=== PATIENT | male | born 1990 | race Caucasian/White ===

== ENCOUNTER 2016-12-15 22:23 | Emergency (ER) | payer SELFPAY ==
[~2016-12-15] VITALS: Ht 175.3 cm; Wt 74.3 kg
[~2016-12-15 22:23] MED LIST: AUGMENTIN875 MG PO; MOTRIN800 MG PO
[2016-12-15 23:13] LABS: HEMATOCRIT 43.6 % (38.0-50.0); MCH 32.5 PG (29.0-34.0); MCHC 36.2 G/DL (30.0-36.0); MCV 89.7 FL (86-99); MEAN PLAT.VOLUME 9.4 uM^3 (9.0-12.4); PLATELET COUNT 267 K/uL (156-360); RBC DIS.WIDTH-CV 12.7 % (11.8-14.6); RBC DIS.WIDTH-SD 41.5 % (39-53); RED BLOOD COUNT 4.86 M/uL (4.00-5.50); WHITE BLOOD COUNT 6.6 K/uL (4.1-10.2)
[2016-12-15 23:27] LABS: CHLORIDE 115 mEq/L (99-109); POTASSIUM 3.3 mEq/L (3.7-5.4); SODIUM 147 mEq/L (136-147)
[2016-12-15 23:29] LABS: GLUCOSE 112 mg/dL (70-99)
[2016-12-15 23:30] LABS: ANION GAP 10 MEQ/L (2-14)
[2016-12-15 23:32] LABS: SERUM ETHYL ALCOHOL 329 mg/dL
[2016-12-15 23:34] LABS: UREA NITROGEN (BUN) 7 mg/dL (9-23)
[2016-12-15 23:36] LABS: SALICYLATE < 5.0 MG/DL (15-30)
[2016-12-15 23:38] LABS: GFR ESTIMATE (CALCULATED) > 59 mL/min/
[2016-12-16 03:10] LABS: ADD MEDTOX COMMENT Y; AMPHETAMINE NEGATIVE (500 ng/mL); BARBITURATES NEGATIVE (200 ng/mL); BENZODIAZEPINES PRESUMPTIVE POSITIVE (150 ng/mL); COCAINE NEGATIVE (150 ng/mL); INTERNAL CONTROLS VALID? YES; METHADONE NEGATIVE (200 ng/mL); METHAMPHETAMINE NEGATIVE (500 ng/mL); OPIATES (MORPHINE) NEGATIVE (100 ng/mL); OXYCODONE NEGATIVE (100 ng/mL); PHENCYCLIDINE NEGATIVE (25 ng/mL); PROPOXYPHENE NEGATIVE (300 ng/mL); THC CANNABINOIDS NEGATIVE (50 ng/mL); TRICYCLIC ANTIDEPRESSANTS NEGATIVE (300 ng/mL)
[2016-12-16 05:24] LABS: BENZODIAZEPINES, URINE SCREEN POSITIVE (200 ng/mL)
[2016-12-16] MEDS ORDERED: PEPCID20 MG PO (05:58)
[2016-12-16 06:25] VITALS: BP 93/58
== END 2016-12-16 06:29 | disposition home or self-care (01) ==
LOC: EME 22:23 → EDBD 22:23 → EME 22:23
PROVIDERS: Emergency Medicine
DX: F10.129 Alcohol abuse with intoxication, unspecified (principal); R45.1 Restlessness and agitation
CPT/HCPCS: 71010; 80048; 83930; 84999; 85027; 93005; 99281; 99285; G0480; J1630; J2250; J7030

== ENCOUNTER 2017-08-24 18:18 | Inpatient (IN) | payer OTHER ==
[~2017-08-24] VITALS: Ht 180.3 cm; Wt 70.0 kg
[~2017-08-24 18:18] MED LIST changes: +PEPCID20 MG PO
[2017-08-24 19:20] LABS: HEMATOCRIT 48.2 % (38.0-50.0); MCH 32.7 PG (29.0-34.0); MCHC 35.9 G/DL (30.0-36.0); MCV 91.1 FL (86-99); MEAN PLAT.VOLUME 9.4 uM^3 (9.0-12.4); PLATELET COUNT 267 K/uL (156-360); RBC DIS.WIDTH-SD 40.2 % (39-53); RED BLOOD COUNT 5.29 M/uL (4.00-5.50); WHITE BLOOD COUNT 11.9 K/uL (4.1-10.2)
[2017-08-24 19:36] LABS: CHLORIDE 99 mEq/L (99-109)
[2017-08-24 19:37] LABS: POTASSIUM 3.6 mEq/L (3.7-5.4); SODIUM 137 mEq/L (136-147)
[2017-08-24 19:38] LABS: GLUCOSE 129 mg/dL (70-99)
[2017-08-24 19:39] LABS: TROP-I INTERPRETATION NEGATIVE; TROPONIN-I < 0.01 ng/mL (0.0-0.30)
[2017-08-24 19:40] LABS: ANION GAP 16 MEQ/L (2-14)
[2017-08-24 19:42] LABS: GFR ESTIMATE (CALCULATED) > 59 mL/min/
[2017-08-24 19:43] LABS: UREA NITROGEN (BUN) 8 mg/dL (9-23)
[2017-08-25 00:33] LABS: INTER. NORMALIZED RATIO 1.2; PROTHROMBIN TIME 13.6 SEC (10.2-12.9)
[2017-08-25 00:36] LABS: PTT 30.8 SEC (25-37)
[2017-08-25 03:14] LABS: TOTAL BILIRUBIN 0.8 mg/dL (0.0-1.0)
[2017-08-25 03:15] LABS: ALKALINE PHOSPHATASE 139 IU/L (3-129)
[2017-08-25 03:18] LABS: DIRECT BILIRUBIN 0.4 mg/dL (0.0-0.3)
[2017-08-25 03:26] VITALS: BP 108/55
[2017-08-25 05:35] LABS: HEMATOCRIT 40.6 % (38.0-50.0); MCHC 34.5 G/DL (30.0-36.0); MCV 92.9 FL (86-99); MEAN PLAT.VOLUME 9.5 uM^3 (9.0-12.4); PLATELET COUNT 234 K/uL (156-360); RBC DIS.WIDTH-CV 12.2 % (11.8-14.6); RED BLOOD COUNT 4.37 M/uL (4.00-5.50); WHITE BLOOD COUNT 9.9 K/uL (4.1-10.2)
[2017-08-25 05:54] LABS: ALKALINE PHOSPHATASE 94 IU/L (3-129); ANION GAP 6 MEQ/L (2-14); CHLORIDE 107 MEQ/L (99-109); GFR ESTIMATE (CALCULATED) > 59 mL/min/; GLUCOSE 100 mg/dL (70-99); SAMPLE HEMOLYSIS CHECK 0; SAMPLE ICTERIC CHECK 0; SAMPLE LIPEMIA CHECK 0; SODIUM 138 MEQ/L (136-147); TOTAL BILIRUBIN 0.9 MG/DL (0.0-1.0); UREA NITROGEN (BUN) 7 mg/dL (9-23)
[2017-08-25 08:32] VITALS: BP 113/59
[2017-08-25 12:30] VITALS: BP 100/57
[2017-08-25 17:31] VITALS: BP 115/59
[2017-08-25 21:02] VITALS: BP 112/56
[2017-08-25 23:35] VITALS: BP 101/52
[2017-08-26 07:49] VITALS: BP 95/54
[2017-08-26 11:16] VITALS: BP 106/55
[2017-08-26] MEDS ORDERED: XARELTO1 EACH PO (11:36)
[2017-08-26 17:39] VITALS: BP 104/54
[2017-08-26 19:40] VITALS: BP 107/59
[2017-08-27 00:20] VITALS: BP 109/57
[2017-08-27 04:44] VITALS: BP 116/59
[2017-08-27 07:51] VITALS: BP 107/52
[2017-08-27] MEDS ORDERED: THERAGRAN1 TABLET PO (09:56)
[2017-08-27] MEDS ORDERED: NICOTINE PATCH1 EAC2 TD (09:56)
[2017-08-27] MEDS ORDERED: ENDOCET 5-3251 EACH PO (09:56)
[2017-08-27] MEDS ORDERED: FOLIC ACID1 MG PO (09:56)
[2017-08-27] MEDS ORDERED: B-1100 MG PO (09:56)
[2017-08-27 11:29] VITALS: BP 109/68
[2017-08-27 22:55] LABS: LUPA PHOSPHOLIPID NEUTRALIZ Negative (Negative)
[2017-08-29 16:33] LABS: DRVVT Mixing Study Interp Not Indicated (()); PROTEIN C FUNCTIONAL ACTIVITY+ 61 % (70-180); PTT-LA 71 sec (<=40); PTT-LA Reflex Has been added (()); Protein S, Free 111 % normal (57-171); Thrombosis Consult Level Limited (()); dRVVT Screen 49 sec (<=45)
[2017-08-30 10:21] LABS: ANTITHROMBIN III ACTIVITY+ 80 % activi (80-120)
[2017-08-31 10:26] LABS: THROMBIN TIME+ 20 sec (13-19)
== END 2017-08-27 13:00 | disposition home or self-care (01) | DRG 176 ==
LOC: EME 18:18 → EDOF 08-25 02:03 → 3EAST 08-25 02:03 → ENRESERV 08-25 02:04 → 3EAST 08-25 02:51
PROVIDERS: Hospitalist; Physician Assistant
DX: I26.99 Other pulmonary embolism without acute cor pulmonale (principal); R04.2 Hemoptysis; I82.492 Acute embolism and thrombosis of other specified deep vein of left lower extremity; E87.6 Hypokalemia; R00.0 Tachycardia, unspecified; K21.9 Gastro-esophageal reflux disease without esophagitis; J45.909 Unspecified asthma, uncomplicated; F17.210 Nicotine dependence, cigarettes, uncomplicated; Z23 Encounter for immunization
CPT/HCPCS: 71020; 71275; 80048; 80053; 80076; 81240 90; 83090 90; 83605; 83735; 84484; 85027; 85240 90; 85300 90; 85303 90; 85305 90; 85306 90; 85307 90; 85379; 85610; 85613 90; 85670 90; 85730; 85730 90; 86146 90; 86147 90; 87040; 90686; 93005; 93306; 93970; 99281; 99285; J0696; J1170; J1885; J2270; J2405; J7030; J7050

== ENCOUNTER 2018-03-28 15:14 | Emergency (ER) | payer SELFPAY ==
[~2018-03-28] VITALS: Ht 180.3 cm; Wt 63.6 kg
[~2018-03-28 15:14] MED LIST changes: +B-1100 MG PO; +ENDOCET 5-3251 EACH PO; +FOLIC ACID1 MG PO; +NICOTINE PATCH1 EAC2 TD; +THERAGRAN1 TABLET PO; +XARELTO1 EACH PO
[2018-03-28 22:27] VITALS: BP 114/65
== END 2018-03-28 22:28 | disposition home or self-care (01) ==
LOC: EME 15:14
PROC: 0JQ10ZZ Repair Face Subcutaneous Tissue and Fascia, Open Approach (ICD-10-PCS; principal; 2018-03-28)
DX: S01.81XA Laceration without foreign body of other part of head, initial encounter (principal); S02.2XXA Fracture of nasal bones, initial encounter for closed fracture; W01.190A Fall on same level from slipping, tripping and stumbling with subsequent striking against furniture, initial encounter; F10.129 Alcohol abuse with intoxication, unspecified; Y90.9 Presence of alcohol in blood, level not specified; K21.9 Gastro-esophageal reflux disease without esophagitis; J45.909 Unspecified asthma, uncomplicated; F41.9 Anxiety disorder, unspecified; F17.200 Nicotine dependence, unspecified, uncomplicated; Z86.711 Personal history of pulmonary embolism
CPT/HCPCS: 70450; 72125; 99281; 99285; J2060

== ENCOUNTER 2018-03-31 06:36 | Inpatient (IN) | payer OTHER ==
[~2018-03-31] VITALS: Ht 180.3 cm; Wt 64.9 kg
[2018-03-31 07:25] LABS: INTER. NORMALIZED RATIO 1.2
[2018-03-31 07:51] LABS: ALBUMIN 3.4 G/DL (3.2-4.8); ALKALINE PHOSPHATASE 127 IU/L (3-129); ALT (GPT) 179 IU/L (3-49); AST (GOT) 304 IU/L (2-34); CHLORIDE 93 MEQ/L (99-109); CREATININE 0.7 MG/DL (0.6-1.3); GFR ESTIMATE (CALCULATED) > 59 mL/min/ (58.99-99999); GLUCOSE 176 mg/dL (70-99); LIPASE 91 U/L (1.0-51.0); POTASSIUM 2.5 MEQ/L (3.7-5.4); SODIUM 134 MEQ/L (136-147); TOTAL BILIRUBIN 2.7 MG/DL (0.0-1.0); TOTAL PROTEIN 6.2 G/DL (6.4-8.3); UREA NITROGEN (BUN) 9 mg/dL (9-23)
[2018-03-31 08:39] LABS: BASOPHIL (%) 0.3 % (0-1); BASOPHIL COUNT 0.1 K/uL (0-0.1); EOSINOPHIL (%) 0.1 % (0-5); HEMATOCRIT 40.1 % (38.0-50.0); HEMOGLOBIN 15.3 G/DL (12.5-16.6); IMMATURE GRANULOCYTE (%) 1.5 % (0.0-0.7); LYMPHOCYTE (%) 6.7 % (15-42); MCH 35.4 PG (29.0-34.0); MCHC 38.2 G/DL (30.0-36.0); MCV 92.8 FL (86-99); MONOCYTE (%) 4.9 % (3-12); MONOCYTE COUNT 0.7 K/uL (0-0.8); NEUTROPHIL (%) 86.5 % (45-76); NEUTROPHIL COUNT 12.6 K/uL (1.8-6.4); PLATELET COUNT 225 K/uL (156-360); RBC DIS.WIDTH-CV 12.4 % (11.8-14.6); RBC DIS.WIDTH-SD 42.1 % (39-53); RED BLOOD COUNT 4.32 M/uL (4.00-5.50); WHITE BLOOD COUNT 14.6 K/uL (4.1-10.2)
[2018-03-31 11:04] LABS: PTT 25.8 SEC (25-37)
[2018-03-31 11:50] LABS: MAGNESIUM 1.5 mg/dl (1.3-2.7)
[2018-03-31 12:45] LABS: APPEARANCE CLEAR ((CLEAR)); BILIRUBIN SMALL; BLOOD NEGATIVE; COLOR AMBER ((YELLOW)); GLUCOSE (STRIP) NEGATIVE; KETONES NEGATIVE; LEUKOCYTES NEGATIVE; NITRITE NEGATIVE; PROTEIN (STRIP) 30; UCUL ADDED? NO
[2018-03-31 12:47] LABS: SPECIFIC GRAVITY > 1.060 (1.000-1.030)
[2018-03-31 12:54] LABS: AMPHETAMINE PRESUMPTIVE POSITIVE (500 ng/mL); BARBITURATES NEGATIVE (200 ng/mL); BENZODIAZEPINES PRESUMPTIVE POSITIVE (150 ng/mL); BUPRENORPHINE PRESUMPTIVE POSITIVE (10 ng/mL); COCAINE NEGATIVE (150 ng/mL); METHADONE NEGATIVE (200 ng/mL); METHAMPHETAMINE NEGATIVE (500 ng/mL); OPIATES (MORPHINE) NEGATIVE (100 ng/mL); OXYCODONE NEGATIVE (100 ng/mL); PHENCYCLIDINE NEGATIVE (25 ng/mL); PROPOXYPHENE NEGATIVE (300 ng/mL); THC CANNABINOIDS NEGATIVE (50 ng/mL); TRICYCLIC ANTIDEPRESSANTS NEGATIVE (300 ng/mL)
[2018-03-31 12:55] LABS: HEMATOCRIT 42.7 % (38.0-50.0); MCH 35.4 PG (29.0-34.0); MCHC 37.5 G/DL (30.0-36.0); MCV 94.5 FL (86-99); PLATELET COUNT 203 K/uL (156-360); RBC DIS.WIDTH-CV 12.8 % (11.8-14.6); RBC DIS.WIDTH-SD 43.9 % (39-53); RED BLOOD COUNT 4.52 M/uL (4.00-5.50); WHITE BLOOD COUNT 11.6 K/uL (4.1-10.2)
[2018-03-31 14:02] LABS: BENZODIAZEPINES, URINE SCREEN Negative (200 ng/mL)
[2018-03-31 14:22] VITALS: BP 120/69
[2018-03-31 16:27] LABS: AMYLASE 56 IU/L (1-118); CHLORIDE 99 MEQ/L (99-109); CREATININE 0.8 MG/DL (0.6-1.3); GFR ESTIMATE (CALCULATED) > 59 mL/min/ (58.99-99999); GLUCOSE 155 mg/dL (70-99); LACTATE DEHYDROGENASE 234 IU/L (20-246); SODIUM 135 MEQ/L (136-147); UREA NITROGEN (BUN) 12 mg/dL (9-23)
[2018-03-31 16:31] LABS: POTASSIUM 3.6 MEQ/L (3.7-5.4)
[2018-03-31 16:40] LABS: CREATINE KINASE 29 IU/L (1-294)
[2018-03-31 17:45] LABS: STOOL OCCULT BLD 1ST SPECIMEN NEGATIVE
[2018-03-31 17:58] LABS: C DIFF TOXIN POSITIVE (NEGATIVE)
[2018-03-31 20:13] VITALS: BP 118/71
[2018-03-31 21:58] VITALS: BP 105/56
[2018-03-31 23:59] VITALS: BP 112/69
[2018-04-01 02:50] VITALS: BP 117/63
[2018-04-01 05:58] LABS: HEMOGLOBIN 14.2 G/DL (12.5-16.6); MCH 34.5 PG (29.0-34.0); MCHC 36.4 G/DL (30.0-36.0); MCV 94.9 FL (86-99); PLATELET COUNT 174 K/uL (156-360); RBC DIS.WIDTH-CV 13.3 % (11.8-14.6); RBC DIS.WIDTH-SD 46.7 % (39-53); RED BLOOD COUNT 4.11 M/uL (4.00-5.50)
[2018-04-01 06:25] LABS: ALBUMIN 2.6 G/DL (3.2-4.8); ALT (GPT) 112 IU/L (3-49); CHLORIDE 102 MEQ/L (99-109); CREATININE 0.7 MG/DL (0.6-1.3); GFR ESTIMATE (CALCULATED) > 59 mL/min/ (58.99-99999); POTASSIUM 3.5 MEQ/L (3.7-5.4); SODIUM 136 MEQ/L (136-147); UREA NITROGEN (BUN) 16 mg/dL (9-23)
[2018-04-01 06:34] LABS: ALKALINE PHOSPHATASE 61 IU/L (3-129); AST (GOT) 137 IU/L (2-34); GLUCOSE 107 mg/dL (70-99); TOTAL BILIRUBIN 3.7 MG/DL (0.0-1.0); TOTAL PROTEIN 4.7 G/DL (6.4-8.3)
[2018-04-01 08:01] VITALS: BP 116/82
[2018-04-01 12:08] VITALS: BP 120/69
[2018-04-01 17:06] VITALS: BP 119/68
[2018-04-01 19:48] VITALS: BP 110/57
[2018-04-02 06:02] LABS: BASOPHIL (%) 0.1 % (0-1); EOSINOPHIL (%) 0.1 % (0-5); HEMATOCRIT 34.1 % (38.0-50.0); HEMOGLOBIN 12.3 G/DL (12.5-16.6); IMMATURE GRANULOCYTE (%) 0.9 % (0.0-0.7); LYMPHOCYTE (%) 11.2 % (15-42); LYMPHOCYTE COUNT 1.5 K/uL (1.0-2.8); MCH 34.6 PG (29.0-34.0); MCHC 36.1 G/DL (30.0-36.0); MCV 95.8 FL (86-99); MONOCYTE (%) 4.2 % (3-12); MONOCYTE COUNT 0.6 K/uL (0-0.8); NEUTROPHIL (%) 83.5 % (45-76); NEUTROPHIL COUNT 11.1 K/uL (1.8-6.4); PLATELET COUNT 160 K/uL (156-360); RBC DIS.WIDTH-CV 13.2 % (11.8-14.6); RED BLOOD COUNT 3.56 M/uL (4.00-5.50); WHITE BLOOD COUNT 13.3 K/uL (4.1-10.2)
[2018-04-02 06:35] LABS: ALBUMIN 2.5 G/DL (3.2-4.8); ALKALINE PHOSPHATASE 53 IU/L (3-129); ALT (GPT) 81 IU/L (3-49); AST (GOT) 103 IU/L (2-34); CHLORIDE 102 MEQ/L (99-109); CREATININE 0.5 MG/DL (0.6-1.3); GFR ESTIMATE (CALCULATED) > 59 mL/min/ (58.99-99999); GLUCOSE 83 mg/dL (70-99); POTASSIUM 2.9 MEQ/L (3.7-5.4); SODIUM 135 MEQ/L (136-147); TOTAL PROTEIN 4.6 G/DL (6.4-8.3); UREA NITROGEN (BUN) 13 mg/dL (9-23)
[2018-04-02 06:36] LABS: TOTAL BILIRUBIN 2.7 MG/DL (0.0-1.0)
[2018-04-02 07:21] VITALS: BP 118/78
[2018-04-02 11:09] VITALS: BP 105/53
[2018-04-02 15:40] VITALS: BP 115/65
[2018-04-02 18:13] LABS: BASOPHIL (%) 0.2 % (0-1); EOSINOPHIL (%) 0.2 % (0-5); HEMATOCRIT 29.8 % (38.0-50.0); HEMOGLOBIN 11.1 G/DL (12.5-16.6); IMMATURE GRANULOCYTE (%) 0.8 % (0.0-0.7); LYMPHOCYTE (%) 11.7 % (15-42); MCH 35.9 PG (29.0-34.0); MCHC 37.2 G/DL (30.0-36.0); MCV 96.4 FL (86-99); MONOCYTE (%) 7.2 % (3-12); MONOCYTE COUNT 0.6 K/uL (0-0.8); NEUTROPHIL (%) 79.9 % (45-76); PLATELET COUNT 147 K/uL (156-360); RBC DIS.WIDTH-CV 13.1 % (11.8-14.6); RBC DIS.WIDTH-SD 46.8 % (39-53); RED BLOOD COUNT 3.09 M/uL (4.00-5.50); WHITE BLOOD COUNT 8.8 K/uL (4.1-10.2)
[2018-04-02 18:43] LABS: ALBUMIN 2.3 G/DL (3.2-4.8); ALKALINE PHOSPHATASE 48 IU/L (3-129); ALT (GPT) 66 IU/L (3-49); AST (GOT) 86 IU/L (2-34); CHLORIDE 107 MEQ/L (99-109); CREATININE 0.4 MG/DL (0.6-1.3); GFR ESTIMATE (CALCULATED) > 59 mL/min/ (58.99-99999); POTASSIUM 2.8 MEQ/L (3.7-5.4); SODIUM 135 MEQ/L (136-147); TOTAL BILIRUBIN 2.2 MG/DL (0.0-1.0); TOTAL PROTEIN 4.4 G/DL (6.4-8.3); UREA NITROGEN (BUN) 10 mg/dL (9-23)
[2018-04-02 18:44] LABS: GLUCOSE 107 mg/dL (70-99)
[2018-04-02 20:50] VITALS: BP 108/60
[2018-04-03 00:34] VITALS: BP 120/60
[2018-04-03 06:12] LABS: BASOPHIL (%) 0.3 % (0-1); EOSINOPHIL (%) 1.5 % (0-5); EOSINOPHIL COUNT 0.1 K/uL (0-0.3); HEMATOCRIT 29.5 % (38.0-50.0); HEMOGLOBIN 10.7 G/DL (12.5-16.6); IMMATURE GRANULOCYTE (%) 0.5 % (0.0-0.7); LYMPHOCYTE (%) 22.1 % (15-42); LYMPHOCYTE COUNT 1.3 K/uL (1.0-2.8); MCHC 36.3 G/DL (30.0-36.0); MCV 96.4 FL (86-99); MONOCYTE (%) 8.2 % (3-12); MONOCYTE COUNT 0.5 K/uL (0-0.8); NEUTROPHIL (%) 67.4 % (45-76); NEUTROPHIL COUNT 4.1 K/uL (1.8-6.4); PLATELET COUNT 159 K/uL (156-360); RBC DIS.WIDTH-CV 12.9 % (11.8-14.6); RBC DIS.WIDTH-SD 45.2 % (39-53); RED BLOOD COUNT 3.06 M/uL (4.00-5.50)
[2018-04-03 06:39] LABS: ALBUMIN 2.1 G/DL (3.2-4.8); ALKALINE PHOSPHATASE 41 IU/L (3-129); ALT (GPT) 57 IU/L (3-49); AST (GOT) 73 IU/L (2-34); CHLORIDE 109 MEQ/L (99-109); CREATININE 0.5 MG/DL (0.6-1.3); GFR ESTIMATE (CALCULATED) > 59 mL/min/ (58.99-99999); GLUCOSE 104 mg/dL (70-99); POTASSIUM 2.8 MEQ/L (3.7-5.4); SODIUM 138 MEQ/L (136-147); TOTAL BILIRUBIN 1.8 MG/DL (0.0-1.0); TOTAL PROTEIN 4.1 G/DL (6.4-8.3); UREA NITROGEN (BUN) 8 mg/dL (9-23)
[2018-04-03 08:07] VITALS: BP 120/71
[2018-04-03 11:15] VITALS: BP 105/62
[2018-04-03 15:12] VITALS: BP 108/64
[2018-04-03 23:46] VITALS: BP 124/62
[2018-04-04 05:47] LABS: HEMATOCRIT 31.6 % (38.0-50.0); HEMOGLOBIN 11.5 G/DL (12.5-16.6); MCH 34.8 PG (29.0-34.0); MCHC 36.4 G/DL (30.0-36.0); MCV 95.8 FL (86-99); PLATELET COUNT 198 K/uL (156-360); RBC DIS.WIDTH-CV 12.7 % (11.8-14.6); RBC DIS.WIDTH-SD 44.7 % (39-53); WHITE BLOOD COUNT 4.6 K/uL (4.1-10.2)
[2018-04-04 06:06] LABS: CHLORIDE 107 MEQ/L (99-109); CREATININE 0.4 MG/DL (0.6-1.3); GFR ESTIMATE (CALCULATED) > 59 mL/min/ (58.99-99999); GLUCOSE 90 mg/dL (70-99); POTASSIUM 3.1 MEQ/L (3.7-5.4); SODIUM 138 MEQ/L (136-147); UREA NITROGEN (BUN) 5 mg/dL (9-23)
[2018-04-04 07:53] VITALS: BP 118/70
[2018-04-04 08:23] LABS: ALBUMIN 2.4 G/DL (3.2-4.8); ALKALINE PHOSPHATASE 62 IU/L (3-129); ALT (GPT) 57 IU/L (3-49); AST (GOT) 78 IU/L (2-34); DIRECT BILIRUBIN 0.8 mg/dL (0.0-0.3); TOTAL BILIRUBIN 1.7 MG/DL (0.0-1.0); TOTAL PROTEIN 4.7 G/DL (6.4-8.3)
[2018-04-04 16:31] VITALS: BP 114/64
[2018-04-04 22:42] VITALS: BP 140/65
[2018-04-05 06:44] LABS: HEMATOCRIT 29.3 % (38.0-50.0); HEMOGLOBIN 10.9 G/DL (12.5-16.6); MCH 35.9 PG (29.0-34.0); MCHC 37.2 G/DL (30.0-36.0); MCV 96.4 FL (86-99); PLATELET COUNT 207 K/uL (156-360); RBC DIS.WIDTH-CV 13.1 % (11.8-14.6); RBC DIS.WIDTH-SD 46.5 % (39-53); RED BLOOD COUNT 3.04 M/uL (4.00-5.50); WHITE BLOOD COUNT 6.1 K/uL (4.1-10.2)
[2018-04-05 07:19] LABS: ALBUMIN 2.4 G/DL (3.2-4.8); ALKALINE PHOSPHATASE 54 IU/L (3-129); ALT (GPT) 54 IU/L (3-49); AST (GOT) 71 IU/L (2-34); CHLORIDE 103 MEQ/L (99-109); CREATININE 0.5 MG/DL (0.6-1.3); GFR ESTIMATE (CALCULATED) > 59 mL/min/ (58.99-99999); GLUCOSE 71 mg/dL (70-99); POTASSIUM 3.5 MEQ/L (3.7-5.4); SODIUM 135 MEQ/L (136-147); TOTAL BILIRUBIN 1.9 MG/DL (0.0-1.0); TOTAL PROTEIN 4.9 G/DL (6.4-8.3); UREA NITROGEN (BUN) 8 mg/dL (9-23)
[2018-04-05 07:41] VITALS: BP 122/60
[2018-04-05 16:14] VITALS: BP 128/68
[2018-04-05 20:29] VITALS: BP 116/62
[2018-04-06 00:52] VITALS: BP 118/70
[2018-04-06 06:00] LABS: HEMATOCRIT 27.7 % (38.0-50.0); HEMOGLOBIN 10.2 G/DL (12.5-16.6); MCH 35.5 PG (29.0-34.0); MCHC 36.8 G/DL (30.0-36.0); MCV 96.5 FL (86-99); PLATELET COUNT 229 K/uL (156-360); RBC DIS.WIDTH-CV 13.1 % (11.8-14.6); RBC DIS.WIDTH-SD 46.2 % (39-53); RED BLOOD COUNT 2.87 M/uL (4.00-5.50); WHITE BLOOD COUNT 4.2 K/uL (4.1-10.2)
[2018-04-06 06:37] LABS: ALBUMIN 2.3 G/DL (3.2-4.8); ALKALINE PHOSPHATASE 49 IU/L (3-129); ALT (GPT) 39 IU/L (3-49); AST (GOT) 49 IU/L (2-34); CHLORIDE 106 MEQ/L (99-109); CREATININE 0.4 MG/DL (0.6-1.3); DIRECT BILIRUBIN 0.5 mg/dL (0.0-0.3); GFR ESTIMATE (CALCULATED) > 59 mL/min/ (58.99-99999); PHOSPHORUS 1.9 mg/dL (2.5-4.9); SODIUM 137 MEQ/L (136-147); TOTAL PROTEIN 4.5 G/DL (6.4-8.3); TRIGLYCERIDES 139 MG/DL (Normal: <150); UREA NITROGEN (BUN) 10 mg/dL (9-23)
[2018-04-06 06:38] LABS: GLUCOSE 103 mg/dL (70-99); TOTAL BILIRUBIN 1.2 MG/DL (0.0-1.0)
[2018-04-06 06:43] LABS: ANISOCYTOSIS 2+; BASOPHIL (%) 0.5 % (0-1); EOSINOPHIL (%) 3.5 % (0-5); EOSINOPHIL COUNT 0.2 K/uL (0-0.3); IMMATURE GRANULOCYTE (%) 0.5 % (0.0-0.7); LYMPHOCYTE (%) 30.3 % (15-42); LYMPHOCYTE COUNT 1.3 K/uL (1.0-2.8); MACROCYTES 2+; MONOCYTE (%) 13.2 % (3-12); MONOCYTE COUNT 0.6 K/uL (0-0.8); NEUTROPHIL COUNT 2.2 K/uL (1.8-6.4); PLAT.SUFFICIENCY ADEQUATE; PLATELET CLUMPS PRESENT - PLATELET COUNT APPEARS ADQ.; TOXIC GRANULATION 3+
[2018-04-06 07:57] VITALS: BP 102/67
[2018-04-06 11:00] LABS: PREALBUMIN 9.3 mg/dL (10-40)
[2018-04-06 15:30] VITALS: BP 121/73
[2018-04-06 20:27] VITALS: BP 121/78
[2018-04-06 23:35] VITALS: BP 119/76
[2018-04-07 06:25] LABS: HEMATOCRIT 27.3 % (38.0-50.0); MCH 35.1 PG (29.0-34.0); MCHC 36.6 G/DL (30.0-36.0); MCV 95.8 FL (86-99); RBC DIS.WIDTH-CV 13.2 % (11.8-14.6); RBC DIS.WIDTH-SD 46.5 % (39-53); RED BLOOD COUNT 2.85 M/uL (4.00-5.50); WHITE BLOOD COUNT 5.1 K/uL (4.1-10.2)
[2018-04-07 06:32] LABS: PLATELET COUNT 306 K/uL (156-360)
[2018-04-07 06:49] LABS: CHLORIDE 110 MEQ/L (99-109); CREATININE 0.3 MG/DL (0.6-1.3); GFR ESTIMATE (CALCULATED) > 59 mL/min/ (58.99-99999); GLUCOSE 106 mg/dL (70-99); MAGNESIUM 1.9 mg/dl (1.3-2.7); POTASSIUM 3.2 MEQ/L (3.7-5.4); SODIUM 140 MEQ/L (136-147); UREA NITROGEN (BUN) 6 mg/dL (9-23)
[2018-04-07 06:52] LABS: PHOSPHORUS 3.3 mg/dL (2.5-4.9)
[2018-04-07 07:38] VITALS: BP 124/74
[2018-04-07 15:56] VITALS: BP 132/78
[2018-04-08 06:41] LABS: CHLORIDE 110 MEQ/L (99-109); CREATININE 0.4 MG/DL (0.6-1.3); GFR ESTIMATE (CALCULATED) > 59 mL/min/ (58.99-99999); GLUCOSE 97 mg/dL (70-99); MAGNESIUM 2.1 mg/dl (1.3-2.7); SODIUM 139 MEQ/L (136-147); UREA NITROGEN (BUN) 6 mg/dL (9-23)
[2018-04-08 06:44] LABS: POTASSIUM 4.1 MEQ/L (3.7-5.4)
[2018-04-08 07:15] VITALS: BP 128/80
[2018-04-08 16:24] VITALS: BP 130/76
[2018-04-08 22:45] VITALS: BP 114/69
[2018-04-09 06:24] LABS: BASOPHIL (%) 0.7 % (0-1); BASOPHIL COUNT 0.1 K/uL (0-0.1); EOSINOPHIL (%) 2.3 % (0-5); EOSINOPHIL COUNT 0.2 K/uL (0-0.3); HEMATOCRIT 33.5 % (38.0-50.0); HEMOGLOBIN 11.8 G/DL (12.5-16.6); IMMATURE GRANULOCYTE (%) 0.9 % (0.0-0.7); LYMPHOCYTE (%) 28.1 % (15-42); LYMPHOCYTE COUNT 2.4 K/uL (1.0-2.8); MCH 35.4 PG (29.0-34.0); MCHC 35.2 G/DL (30.0-36.0); MONOCYTE (%) 8.5 % (3-12); MONOCYTE COUNT 0.7 K/uL (0-0.8); NEUTROPHIL (%) 59.5 % (45-76); NEUTROPHIL COUNT 5.1 K/uL (1.8-6.4); RBC DIS.WIDTH-CV 13.9 % (11.8-14.6); RBC DIS.WIDTH-SD 50.9 % (39-53); RED BLOOD COUNT 3.33 M/uL (4.00-5.50); WHITE BLOOD COUNT 8.6 K/uL (4.1-10.2)
[2018-04-09 06:26] LABS: MCV 100.6 FL (86-99); PLATELET COUNT 480 K/uL (156-360)
[2018-04-09 06:35] LABS: ALBUMIN 2.9 G/DL (3.2-4.8); ALT (GPT) 59 IU/L (3-49); AST (GOT) 62 IU/L (2-34); CHLORIDE 108 MEQ/L (99-109); CREATININE 0.4 MG/DL (0.6-1.3); DIRECT BILIRUBIN 0.4 mg/dL (0.0-0.3); GFR ESTIMATE (CALCULATED) > 59 mL/min/ (58.99-99999); GLUCOSE 83 mg/dL (70-99); MAGNESIUM 2.1 mg/dl (1.3-2.7); PHOSPHORUS 3.6 mg/dL (2.5-4.9); POTASSIUM 4.9 MEQ/L (3.7-5.4); PREALBUMIN 20.2 mg/dL (10-40); SODIUM 139 MEQ/L (136-147); TRIGLYCERIDES 111 MG/DL (Normal: <150); UREA NITROGEN (BUN) 10 mg/dL (9-23)
[2018-04-09 06:36] LABS: ALKALINE PHOSPHATASE 91 IU/L (3-129); TOTAL BILIRUBIN 0.8 MG/DL (0.0-1.0); TOTAL PROTEIN 6.1 G/DL (6.4-8.3)
[2018-04-09 06:39] VITALS: BP 110/64
[2018-04-09] MEDS ORDERED: THERAGRAN1 TABLET PO (12:26)
[2018-04-09] MEDS ORDERED: FOLIC ACID1 MG PO (12:26)
[2018-04-09] MEDS ORDERED: Thiamine,Vitamin B1 PO (12:26)
== END 2018-04-09 16:02 | disposition home or self-care (01) | DRG 871 ==
LOC: EME → EDSEX 06:36 → EDBD 06:36 → EME 06:36 → EDOF 10:11 → 5EAST 10:11 → ENRESERV 10:12 → 5EAST 14:01
PROVIDERS: Emergency Medicine; Hospitalist; Internal Medicine; Physician Assistant
PROC: 3E0436Z Introduction of Nutritional Substance into Central Vein, Percutaneous Approach (ICD-10-PCS; principal; 2018-04-05)
DX: A41.89 Other specified sepsis (principal); A04.72 Enterocolitis due to Clostridium difficile, not specified as recurrent; E44.0 Moderate protein-calorie malnutrition; K63.1 Perforation of intestine (nontraumatic); K56.609 Unspecified intestinal obstruction, unspecified as to partial versus complete obstruction; K66.8 Other specified disorders of peritoneum; K56.7 Ileus, unspecified; E87.1 Hypo-osmolality and hyponatremia; E87.6 Hypokalemia; F10.239 Alcohol dependence with withdrawal, unspecified; K70.11 Alcoholic hepatitis with ascites; R78.1 Finding of opiate drug in blood; R78.89 Finding of other specified substances, not normally found in blood; K76.0 Fatty (change of) liver, not elsewhere classified; F41.9 Anxiety disorder, unspecified; F17.210 Nicotine dependence, cigarettes, uncomplicated; Z86.711 Personal history of pulmonary embolism; Z86.718 Personal history of other venous thrombosis and embolism; Z91.14 Patient's other noncompliance with medication regimen; Z87.11 Personal history of peptic ulcer disease; Z91.81 History of falling
CPT/HCPCS: 71045; 71046; 74018; 74177; 76937; 80048; 80048 91; 80053; 80076; 81003; 82150; 82248; 82272; 82550; 83605; 83615; 83630; 83690; 83735; 84100; 84134; 84478; 84540; 84630 90; 84999; 85025; 85025 91; 85027; 85610; 85730; 87040; 87177; 87206; 87329; 87493; 87506; 93005; 99281; 99285; J0610; J1644; J2060; J2405; J2543; J3010; J3480; J7030; J7050; S0030